=== PATIENT | male | born 1995 | race African-American/Black ===

== ENCOUNTER 2017-08-16 12:38 | Outpatient (CLI) | payer OTHER ==
--- NOTE | 2017-08-16 19:14 | MRI Report ---
EXAM: RIGHT HAND THUMB DIGIT MR WITHOUT CONTRAST EXAM DATE: 08/16/2017 01:47 PM. CLINICAL HISTORY: RIGHT THUMP MCP PAIN. COMPARISON: None. TECHNIQUE: Multiplanar, multisequence T1-weighted and fluid-sensitive sequences of the finger without contrast. Other: None. FINDINGS: Bones: No fractures or subluxations. No marrow edema. No bone lesions. Cartilage: The articular cartilage is unremarkable. Ligaments: Mild T2 hyperintensity proximal radial collateral ligament of the thumb MCP joint but no r etraction. The ulnar collateral ligament appears intact. Tendons: The flexor and extensor tendons are unremarkable. The visualized pulleys are intact. Musculature: No edema or fatty atrophy. Other: Small bone MCP joint effusion. The subcutaneous tissues are unremarkable. IMPRESSION: 1. Grade 1 sprain radial collateral ligament of the thumb MCP joint. 2. Small MCP joint effusion. 3. No evidence of bony abnormality. [facility]CULOS[facility] SECTION Referring Provider Line: [phone] SITE ID: [id number]
== END 2017-08-16 12:39 | disposition home or self-care (01) ==
LOC: DI 12:38
PROVIDERS: ATTEND Orthopaedic Surgery
DX: S63.641A Sprain of metacarpophalangeal joint of right thumb, initial encounter (principal); M25.441 Effusion, right hand

== ENCOUNTER 2018-12-28 19:43 | Emergency (ER) | payer OTHER ==
--- NOTE | 2018-12-28 20:06 | ED Physician Documentation ---
PD HPI HEAD INJURY - Stated complaint Stated Complaint: LIP LAC - Chief complaint Chief Complaint: Laceration - History obtained from History obtained from: Patient - History of Present Illness Mechanism of head injury: Blow Timing - onset: Today (struck by elbow playing basketball with lac to lower lip outer. There is small lac inner lip, but is not through lac.) Location of injury: Front Quality of pain: Pain Associated symptoms: No: LOC, AMS, Nausea / vomiting Contributing factors: No: Anticoagulated Similar symptoms before: Has not had sx before Recently seen: Not recently seen Review of Systems Constitutional: denies: Fever Nose: denies: Rhinorrhea / runny nose, Congestion Throat: denies: Sore throat Respiratory: denies: Cough GI: denies: Nausea, Vomiting Musculoskeletal: reports: Extremity pain (right index finger pain after sprain a month ago. Still stiff without full flexion. Tender at PIP joint.) Neurologic: denies: Altered mental status, Headache PD PAST MEDICAL HISTORY - Past Medical History Cardiovascular: None Respiratory: None Neuro: None - Present Medications Home Medications: Ambulatory Orders Medication Instructions Recorded Confirmed Diclofenac Sodium [Voltaren] 1 applic TP BID #100 gel..gram. 12/28/18 Naproxen 375 mg PO BID #20 tablet 12/28/18 - Allergies Allergies/Adverse Reactions: Allergies Allergy/AdvReac Type Severity Reaction Status Date / Time No Known Drug Allergies Allergy Verified 12/28/18 19:48 PD ED PE NORMAL - Vitals Vital signs reviewed: Yes - General General: Alert and oriented X 3, No acute distress, Well developed/nourished - HEENT HEENT: PERRL, EOMI, Dentition benign, Other (lower lip inner with small 1 cm partial thickness lac. Outer lip with 1.2 cm lac to fatty tissue with mild bleeding. No FB. The wounds do not connect (not through).) - Neck Neck: Supple, no meningeal sign, No bony TTP, No adenopathy - Cardiac Cardiac: RRR, No murmur - Extremities Extremities: Other (right index finger PIP joint with some tenderness laterally. Incomplete flexion due to stiffness. No effusion/swelling. Able to flex and extend against resistance. Normal sensation. 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, No motor deficit, No sensory deficit, Normal speech Results - Vitals Vitals: Vital Signs - 24 hr 12/28/18 12/28/18 19:44 21:26 Temperature 36.4 C L 36.7 C Heart Rate 78 63 Respiratory 18 16 Rate Blood Pressure 138/77 H 143/74 H O2 Saturation 99 99 Oxygen O2 Source Room air Procedures - Laceration (location) lower lip outer Length in cm: 1.2 Wound type: Linear, Into subcut fat, Clean Neurovascular status: Sensory intact, Motor intact Anesthesia: LET Skin layer closure: Nylon, Interrupted, Size #-0 - enter number (5), Sutures - enter # (4) Other: Patient tolerated well, No complications, Neurovascular intact, Tetanus UTD Complexity: Simple PD MEDICAL DECISION MAKING - ED course Complexity details: reviewed results, considered differential (here for laceration to face, and also asked about right index finger sprain that has hurt for a month still. ), d/w patient Departure - Departure Disposition: 01 Home, Self Care Clinical Impression: Laceration of lower lip Qualifiers: Encounter type: initial encounter Qualified Code(s): S01.511A - Laceration without foreign body of lip, initial encounter Finger sprain Qualifiers: Encounter type: initial encounter Finger: index finger Sprain of finger site: interphalangeal joint Laterality: right Qualified Code(s): S63.630A - Sprain of interphalangeal joint of right index finger, initial encounter Condition: Stable Record reviewed to determine appropriate education?: Yes Instructions: ED Laceration Facial Sutr Tape, ED Sprain Finger Prescriptions: Diclofenac Sodium [Voltaren] 1 applic TP BID #100 gel..gram. Naproxen 375 mg PO BID #20 tablet Comments: It is okay to wash and shower. Clean off the wound twice a day with soap and water, or peroxide and water. Apply some antibiotic ointment to it to keep it moist. Also to watch for signs of infection such as purulence, redness or increasing pain. Return to your primary care or the ER at the specified time for suture removal. Suture removal 6-7 days. For the finger, you can use some topical anti-inflammatories at the knuckle joint and do active range of motion exercises to 3 times a day. Also naproxen oral anti-inflammatory twice daily for a week. Follow-up with your primary care if not better over the next week. Discharge Date/Time: 12/28/18 21:29
[2018-12-28] MEDS ORDERED: LIDOCAINE-EPINEPH-TETRACAINE 3 ML SYRINGE TOP STA (20:19)
--- NOTE | 2018-12-28 21:17 | XRAY Report ---
Reason: right index injury Procedure Date: 12/28/2018 Accession Number: [id number] / [id number] Procedure: XR - Finger(s) RT CPT Code: FULL RESULT: EXAM: RIGHT SECOND DIGIT RADIOGRAPHY EXAM DATE: 12/28/2018 08:56 PM. CLINICAL HISTORY: Jammed second digit of right hand while playing basketball. Pain at PIP joint. COMPARISON: None. TECHNIQUE: 3 views. FINDINGS: Bones: Normal. No fracture or bone lesion. Joints: Slight flexion at the right second PIP joint. No dislocation. Soft Tissues: Soft tissue edema. IMPRESSION: 1. No acute osseous abnormalities. 2. Mild flexion of the right second PIP joint which may be positional or due to tendinous injury. [facility]
[2018-12-28 21:27] VITALS: BP 143/74
== END 2018-12-28 21:29 | disposition home or self-care (01) ==
LOC: ED 19:43
DX: S01.511A Laceration without foreign body of lip, initial encounter (principal); S63.630A Sprain of interphalangeal joint of right index finger, initial encounter; W51.XXXA Accidental striking against or bumped into by another person, initial encounter; Y93.67 Activity, basketball
CPT/HCPCS: 12011; 73140; 99283